=== PATIENT | male | born 1965 | race Caucasian/White ===

== ENCOUNTER 2017-06-17 15:05 | Emergency (ER) | payer BC ==
[2017-06-17] MEDS ORDERED: OXYCODONE/APAP 5/325 TAB PO ONE (16:59)
[2017-06-17] MEDS ORDERED: LIDOCAINE 4%/MENTHOL 1% PATCH TD ONE (17:01)
--- NOTE | 2017-06-17 17:02 | EDPHY ---
H & P Time Seen by Provider: 06/17/17 16:36 HPI/ROS: CHIEF COMPLAINT: Back pain HISTORY OF PRESENT ILLNESS: 52-year-old male presents with 3 week history of low back pain. Onset of low back pain after he was caring a heavy object with his right arm 3 weeks ago. He felt a tweak in his back at that time and since then he has had gradually increasing left-sided back pain, which now radiates down the left leg. The pain is severe and increases with weight bearing and ambulation. He has taken Indocin, ibuprofen, Valium and Soma without relief. No weakness, numbness or bowel/bladder problems. REVIEW OF SYSTEMS: Constitutional: No fever, no chills Eyes: No visual changes ENT: No sore throat Respiratory: No cough, no shortness of breath Cardiac: No chest pain Gastrointestinal: No nausea, no vomiting, no abdominal pain Genitourinary: No hematuria, no dysuria Musculoskeletal: No leg pain or swelling Skin: No rash Neurological: No headache, no numbness, no weakness Psychiatric: No depression Past Medical/Surgical History: DJD cervical spine Social History: Neurosurgeon: Dr. Johnson , no recent alcohol Smoking Status: Never smoked Physical Exam: General Appearance: Alert, pleasant Eyes: Pupils equal and round, no conjunctival pallor or injection ENT, Mouth: Mucous membranes moist Neck: Normal inspection Respiratory: Lungs are clear to auscultation Cardiovascular: Regular rate and rhythm Gastrointestinal: Abdomen is soft and nontender Back: Normal inspection, no tenderness Neurological: A&O, motor 5/5 including dorsiflexion of the foot and 1st toe, sensory intact, antalgic gait Skin: Warm and dry, no rash Extremities: Negative straight leg raise Psychiatric: Mood and affect normal Constitutional: Initial Vital Signs Temperature (C) 36.5 C 06/17/17 15:36 Heart Rate 72 06/17/17 15:36 Respiratory Rate 17 06/17/17 15:36 Blood Pressure 130/84 H 06/17/17 15:36 O2 Sat (%) 97 06/17/17 15:36 O2 Delivery Mode Room Air Allergies/Adverse Reactions: No Known Allergies Allergy (Verified 06/17/17 15:35) Home Medications: Medication Instructions Recorded Allopurinol mg PO 11/21/12 Bupropion HCl 100 mg PO 11/21/12 oxyCODONE/APAP 5/325 [Percocet 1 tab PO Q4-6PRN PRN #12 tab 11/21/12 5/325 (*)] Citalopram 06/17/17 DIAZEPAM 06/17/17 Diazepam [Valium 5 MG (*)] 5 mg PO Q6 PRN #15 tab 06/17/17 SOMA 06/17/17 methylPREDNISolone [Medrol Dose 1 each PO AD #1 ea 06/17/17 Edwin] oxyCODONE/APAP 5/325 [Percocet 1 - 2 tab PO Q4 PRN #20 tab 06/17/17 5/325 (*)] Medical Decision Making ED Course/Re-evaluation: This patient presents with severe left-sided sciatica, without neurologic signs or symptoms. Neuro imaging is not indicated in this patient. He will be placed on Medrol Dosepak, Percocet and Valium. He will use lidocaine patches as needed. He will follow up with Dr. Gurmeet Johnson in the office. He already has an appointment scheduled in 2 weeks. Precautions given. Differential Diagnosis: Differential diagnosis for back pain includes muscular pain, herniated disc, epidural abscess, discitis, spine fracture, intra-abdominal causes and urinary tract infection. - Data Points Medications Given: Discontinued Medications Miscellaneous Medication (Icy Hot Lidocaine/Menthol 4%/1% Patch) 1 patch TD EDNOW ONE Stop: 06/17/17 17:02 Last Admin: 06/17/17 17:13 Dose: 1 patch Oxycodone/Acetaminophen (Percocet 5/325) 2 tab PO EDNOW ONE Stop: 06/17/17 17:00 Last Admin: 06/17/17 17:13 Dose: 2 tab Departure - Departure Disposition: Home, Routine, Self-Care Clinical Impression: Sciatica of left side Condition: Good Instructions: Sciatica (ED) Additional Instructions: Return for worsening symptoms or any concerns. Referrals: Juan Hurt MD [Primary Care Provider] - As per Instructions Giorgi Johnson MD [Medical Doctor] - As per Instructions (Keep your appointment with Dr. Johnson. ) Prescriptions: Diazepam [Valium 5 MG (*)] 5 mg PO Q6 PRN #15 tab PRN Reason: muscle spasm methylPREDNISolone [Medrol Dose Edwin] 1 each PO AD #1 ea oxyCODONE/APAP 5/325 [Percocet 5/325 (*)] 1 - 2 tab PO Q4 PRN #20 tab PRN Reason: pain
[2017-06-17 17:18] VITALS: BP 152/88; PULSE 77; RESP 16; TEMP 96.8; O2SAT 96
[2017-06-17] MEDS ORDERED: PATCH REMOVAL 1 EA PATCH TD SCH (21:00)
== END 2017-06-17 17:32 | disposition home or self-care (01) ==
DX: M54.32 Sciatica, left side (principal)

== ENCOUNTER → 2017-06-22 | Outpatient (CLI) | payer BC | LOC: FIMAGING 11:32 | PROVIDERS: ATTEND Physician Assistant | DX: M45.5 Ankylosing spondylitis of thoracolumbar region (principal) ==

== ENCOUNTER 2017-06-23 17:04 | Emergency (ER) | payer BC ==
--- NOTE | 2017-06-23 18:05 | EDPHY ---
H & P Stated Complaint: L SPINE DEGENERATIVE CHANGES WITH INCREASING WEAKNESS/SENT FOR MRI Time Seen by Provider: 06/23/17 18:04 HPI/ROS: HPI: This is a 52-year-old male who presents with Chief Complaint: L SPINE DEGENERATIVE CHANGES WITH INCREASING WEAKNESS/SENT FOR MRI Location: Lower lumbar, left leg Quality: Pain Duration: Several weeks Signs and Symptoms: No bleeding, + radiation, no numbness, no weakness, no tingling, no incontinence, + decreased range of motion, no swelling, + pain, no fever, left leg weakness Timing: Worsening Severity: Moderate to severe Context: Patient presents from recommendation from Dr. Johnson office for MRI of the lumbar spine. Last night he had left leg weakness primarily in the left anterior and posterior thigh that caused him to lose his balance, fall and worsen his lower back pain. Patient reports that several weeks ago he was lifting approximately 45 lb and placed it on his right shoulder when he felt pain on his left lower back that worsened next morning and was associated with decreased range of motion. He was seen in this emergency room on 06/17/2017 and given Medrol Dosepak, Valium and Percocet with transient relief in symptoms. Patient reports that he felt better and again lifted a heavy object and re-injured his lower back. Modifying Factors: See above Comment: ROS: see HPI Constitutional: No fever, no chills, no weight loss Eyes: No blurred vision Respiratory: No shortness of breath, no cough Cardiovascular: No chest pain Gastrointestinal: No nausea, no vomiting no diarrhea Genitourinary: No dysuria Extremities: No myalgias Neurologic: No weakness, no numbness Skin: No rashes Hematologic: No bruising, no bleeding MEDICAL/SURGICAL/SOCIAL HISTORY: Medical history: Degenerative spine changes Surgical history: Denies Social history: Employed. CONSTITUTIONAL: Extremely pleasant, well-developed well-nourished adult male, awake and alert, no obvious distress HEENT: Atraumatic and normocephalic. NECK: supple, no midline tenderness, flexion 45 degrees, extension 45 degrees, right and left lateral flexion 45 degrees. No meningismus. Cardiovascular: Normal S1/S2, regular rate, regular rhythm, without murmur rub or gallop. PULMONARY/CHEST: Symmetrical and nontender. no crepitus. Clear to auscultation bilaterally. Good air movement. No accessory muscle usage. ABDOMEN: Soft, nondistended, nontender, no ecchymosis. PELVIC: no pain with rocking; bilateral hips flexion 125 degrees, extension 30 degrees, with no pain internal rotation and no pain external rotation. BACK: No midline tenderness, no paraspinous spasm, deep tendon reflexes 2/2, + moderate pain pain with left straight leg raise, no pain with right leg straight leg raise, No foot drop. Flexion, extension, bilateral lateral rotation mildly decreased range of motion secondary to pain. Achilles reflexes are equal bilaterally. Able to walk on heels and toes without difficulty. EXTREMITIES: 2/2 pulses, strength 5/5, DIP/PIP/MCP flexion/extension intact with good light touch sensation. no deformities, no clubbing, no cyanosis or edema. NEUROLOGICAL: no focal neuro deficits. GCS 15. Light touch sensation intact. SKIN: Warm and dry, no erythema. no rash. Good capillary refill. Source: Patient Exam Limitations: No limitations - Personal History Current Tetanus/Diphtheria Vaccine: Yes Tetanus Vaccine Date: WITHIN 10 YRS - Medical/Surgical History Hx Asthma: No Hx Chronic Respiratory Disease: No Hx Diabetes: No Hx Cardiac Disease: No Hx Renal Disease: No Hx Cirrhosis: No Hx Alcoholism: No Hx HIV/AIDS: No Hx Splenectomy or Spleen Trauma: No Other PMH: degenerative back issues/gout - Social History Smoking Status: Never smoked Constitutional: Initial Vital Signs Temperature (C) 36.5 C 06/23/17 17:13 Heart Rate 74 06/23/17 17:13 Respiratory Rate 18 06/23/17 17:13 Blood Pressure 157/97 H 06/23/17 17:13 O2 Sat (%) 97 06/23/17 17:13 O2 Delivery Mode Room Air Allergies/Adverse Reactions: No Known Allergies Allergy (Verified 06/23/17 17:12) Home Medications: Medication Instructions Recorded Allopurinol mg PO 11/21/12 Bupropion HCl 100 mg PO 11/21/12 oxyCODONE/APAP 5/325 [Percocet 1 tab PO Q4-6PRN PRN #12 tab 11/21/12 5/325 (*)] Citalopram 06/17/17 DIAZEPAM 06/17/17 Diazepam [Valium 5 MG (*)] 5 mg PO Q6 PRN #15 tab 06/17/17 SOMA 04/04/18 methylPREDNISolone [Medrol Dose 1 each PO AD #1 ea 06/17/17 Edwin] oxyCODONE/APAP 5/325 [Percocet 1 - 2 tab PO Q4 PRN #20 tab 06/17/17 5/325 (*)] HYDROmorphone HCL [Dilaudid 2 mg 2 mg PO Q6 PRN #12 tab 06/23/17 (*)] Indomethacin 06/23/17 Medical Decision Making - Diagnostics Imaging Results: Imaging Impressions Lumbar Spine MRI 06/23/17 18:19 Impression: 1. L3-L4: Focal left foraminal disk protrusion causing severe left neural foraminal stenosis, with mild right neural foraminal stenosis. 2. L2-L3: Mild to moderate right and mild left neural foraminal stenosis, with no significant spinal canal narrowing. 3. Please see above findings at specific disk levels. Findings discussed with Aneta Kenny PA-C, on June 23, 2017 at 1934. ED Course/Re-evaluation: MRI lumbar spine ordered due to progressive worsening of pain and left upper leg weakness. Patient politely declined any pain medications while waiting in the emergency room. No signs of neurovascular compromise/tenting of skin/compartment syndrome/ extremities and joints examined above and below area of concern and are neurovascularly intact/epidural hematoma/myositis/diskitis. Called by radiologist who advised that there is L3-L4 disc protrusion with nerve root impingement on the left. Reassessed patient who reports that he wants to go home with Neurosurgery follow -up. 1956: ED decision to consult Neurosurgery as sent to ER for further imaging. Spoke with Dr. Vega who advises appropriate to discharge home with pain control and outpatient follow-up. Given patient option to be admitted to the hospital for pain control and he kindly request to be discharged home. Ambulatory without deficits at discharge. Pain controlled at discharge. This patient was seen under the supervision of my secondary supervising physician. I evaluated care for this patient independently. Differential Diagnosis: Back pain including but not limited to muscular pain, herniated disc, spine fracture, intra-abdominal causes and urinary tract infection. Departure - Departure Disposition: Home, Routine, Self-Care Clinical Impression: Protrusion of lumbar intervertebral disc, Neural foraminal stenosis of lumbar spine Condition: Good Instructions: Lumbar Disc Herniation (ED), Lumbar Spinal Stenosis (ED) Additional Instructions: Rest as much as possible until you are feeling better. Do not lift More than 10 lb and avoid any moderate or strenuous activity. Use Valium as needed for muscle spasm. Use Dilaudid 2 mg every 6 hr as needed for severe pain. Call Dr. Vega's office in the morning for follow-up appointment this week to discuss further intervention options. Return to the ER immediately if you have new or worsening back pain, fevers/ chills, flu like symptoms, incontinence or inability to urinate or defecate, weakness, paralysis, or any other symptom that concerns you Referrals: Derrick Vega MD [Medical Doctor] - As per Instructions Juan Hurt MD [Primary Care Provider] - As per Instructions Prescriptions: HYDROmorphone HCL [Dilaudid 2 mg (*)] 2 mg PO Q6 PRN #12 tab PRN Reason: Pain, Severe
[2017-06-23 20:26] VITALS: BP 146/83
== END 2017-06-23 20:26 | disposition home or self-care (01) ==
DX: M48.061 Spinal stenosis, lumbar region without neurogenic claudication (principal); M51.26 Other intervertebral disc displacement, lumbar region

== ENCOUNTER 2017-07-13 05:56 | Day surgery (SDC) | payer BC ==
[2017-07-13] MEDS ORDERED: ceFAZolin 2 GM/SWFI 2 GM/20 ML SYR IVP ONE (06:13)
[2017-07-13] MEDS ORDERED: ACETAMINOPHEN 500 MG TAB PO ONE (06:13)
[2017-07-13] MEDS ORDERED: LR 1,000 ML IV ONE (06:17)
--- NOTE | 2017-07-13 06:42 | PDHPUP ---
History & Physical Update H&P update statement: This history and physical update is based on an assessment of the patient which was completed after admission or registration (within 24 hours), but prior to the surgery/procedure. H&P update: H&P reviewed & patient examined, no change in patient's condition since H&P completed
--- NOTE | 2017-07-13 06:56 | PDANEPAE ---
ANE History of Present Illness 52 year old male with PMHx of FRANK, anxiety and depression presents for microdiscectomy. ANE Past Medical History - Cardiovascular History Hx Hypertension: No Hx Arrhythmias: No Hx Chest Pain: No Hx Coronary Artery / Peripheral Vascular Disease: No Hx CHF / Valvular Disease: No Hx Palpitations: No - Pulmonary History Hx COPD: No Hx Asthma/Reactive Airway Disease: No Hx Recent Upper Respiratory Infection: No Hx Oxygen in Use at Home: No Hx Sleep Apnea: No Sleep Apnea Screening Result - Last Documented: Negative Pulmonary History Comment: mild FRANK - Neurologic History Hx Cerebrovascular Accident: No Hx Seizures: No Hx Dementia: No - Endocrine History Hx Diabetes: No Hypothyroid: No Hyperthyroid: No Obesity: no - Renal History Hx Renal Disorders: No - Liver History Hx Hepatic Disorders: No - Neurological & Psychiatric Hx Hx Neurological and Psychiatric Disorders: Yes Neurological / Psychiatric History Comment: slight tremor left hand. 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 - GI History Hx Gastrointestinal Disorders: No - Other Health History Other Health History: none - Chronic Pain History Chronic Pain: No - Surgical History Prior Surgeries: perineal cyste removed ANE Review of Systems Review of systems is: negative Review of Systems: - Exercise capacity Exercise capacity: >=4 METS METS (RN): 6 METS - Systems Muscolosketal: Reports: back pain Neurological: Reports: tremors ANE Patient History - Allergies Allergies/Adverse Reactions: No Known Allergies Allergy (Verified 07/09/17 12:08) - Home Medications Home medications: home medication list seen and reviewed Home Medications: Allopurinol 11/21/12 [Last Taken Unknown] Bupropion HCl 11/21/12 [Last Taken Unknown] Citalopram 06/17/17 [Last Taken Unknown] - NPO status NPO Status: no food or drink >8 hours NPO Since - Liquids (Date): 07/13/17 NPO Since - Liquids (Time): 06:00 NPO Since - Solids (Date): 07/12/17 NPO Since - Solids (Time): 20:00 - Anes Hx Anes Hx: no prior problems - Smoking Hx Smoking Status: Never smoked Marijuana use: No - Alcohol Use Alcohol Use: Rarely - Family Anes Hx Family Anes Hx: neg - N/A Family Hx Anesthesia Complications: none ANE Labs/Vital Signs - Vital Signs Vital Signs: reviewed preoperatively; see RN documention for details Blood Pressure: 129/78 Heart Rate: 66 Respiratory Rate: 14 O2 Sat (%): 95 Height: 172.72 cm Weight: 83.007 kg ANE Physical Exam - Airway Neck exam: FROM Mallampati Score: Class 2 Mouth exam: normal dental/mouth exam Mouth image: 1 - Small chip on inferior cutting surface - Pulmonary Pulmonary: no respiratory distress - Cardiovascular Cardiovascular: regular rate and rhythym - ASA Status ASA Status: II ANE Anesthesia Plan Anesthesia Plan: general endotracheal anesthesia Total IV Anesthesia: No
[2017-07-13] MEDS ORDERED: BUPIVACAINE 0.25% 30 ML SDV ONE (07:02)
[2017-07-13] MEDS ORDERED: THROMBIN (BOVINE) 5,000 UNIT VIAL TP ONE (07:02)
[2017-07-13] MEDS ORDERED: DEPO METHYLPREDNISOLONE 40 MG/ML SDV ONE (07:02)
[2017-07-13] MEDS ORDERED: BACITRACIN 50,000 UNITS/10 ML SYR IRR ONE (07:03)
[2017-07-13] MEDS ORDERED: MIDAZOLAM 2 MG/2 ML VIAL IVP ONE (07:08)
[2017-07-13] MEDS ORDERED: PROPOFOL/EMULSION 500 MG/50 ML BOTTLE IV ONE (07:15)
[2017-07-13] MEDS ORDERED: fentaNYL 100 MCG/2 ML INJ ONE (07:15)
[2017-07-13] MEDS ORDERED: REMIFENTANIL HCL 1 MG VIAL ONE (07:15)
[2017-07-13] MEDS ORDERED: PROPOFOL 200 MG/20 ML VIAL ONE (07:15)
[2017-07-13] MEDS ORDERED: ROCURONIUM 50 MG/5 ML VIAL ONE (07:17)
[2017-07-13] MEDS ORDERED: LIDOCAINE 2% 5 ML SDV ONE (07:17)
[2017-07-13] MEDS ORDERED: DEXAMETHASONE 4 MG/ML VIAL ONE (07:19)
[2017-07-13] MEDS ORDERED: ONDANSETRON 4 MG/2 ML VIAL ONE (07:19)
[2017-07-13] MEDS ORDERED: ONDANSETRON 4 MG/2 ML VIAL IVP PRN (08:32)
[2017-07-13] MEDS ORDERED: LR 500 ML IV PRN (08:32)
[2017-07-13] MEDS ORDERED: oxyCODONE IR 5 MG TAB PO PRN (08:32)
[2017-07-13] MEDS ORDERED: DIAZEPAM 5 MG/ML 1 ML SYR IVP PRN (08:32)
[2017-07-13] MEDS ORDERED: NALOXONE HCL 0.4 MG/ML INJ IVP PRN (08:32)
[2017-07-13] MEDS ORDERED: HYDROmorphONE/DILAUDID 2 MG/ML INJ IVP PRN (08:32)
[2017-07-13] MEDS ORDERED: PHENYLEPHRINE HCL 100 MCG/ML SYR IVP PRN (08:32)
[2017-07-13] MEDS ORDERED: ACETAMINOPHEN 500 MG TAB PO PRN (08:32)
[2017-07-13] MEDS ORDERED: epHEDrine SULFATE 10 MG/ML SYR IVP PRN (08:32)
[2017-07-13] MEDS ORDERED: fentaNYL 100 MCG/2 ML INJ IVP PRN (08:32)
[2017-07-13] MEDS ORDERED: PHENYLEPHRINE HCL 100 MCG/ML SYR ONE (08:57)
--- NOTE | 2017-07-13 10:18 | POSTOPPROG ---
Post Op Note Date of Operation: 07/13/17 Surgeon: Giorgi Johnson Child Care Group Leader: Kary Gabriel SUPER[employer] Anesthesia: GET(General Endotracheal) Pre-op Diagnosis: L3-4 HNP Procedure: Left L3-4 ELVIA Inf/Abcess present in the surg proc area at time of surgery?: No Depth: Deep Incisional (Fascial) EBL: 50-100 Date of Surgery: 07/13/17 Post Op Day: 0 Assessment/Plan: Assessment: 52 yr old male s/p left L3-4 ELVIA Plan: -DC home when criteria met Please call neurosurgery with any questions/concerns Subjective: Waking up in PACU Objective: Waking up in PACU PERRL No facial droop 5/5 BUE, BLE Sensation intact to light touch BLE Dressing CDI Appropriate Neuro Check Frequency Ordered: Yes
[2017-07-13] MEDS ORDERED: oxyCODONE IR 5 MG TAB ONE (10:21)
[2017-07-13] MEDS ORDERED: METHOCARBAMOL 750 MG TAB ONE (10:47)
[2017-07-13 10:50] VITALS: BP 128/82
[2017-07-13] MEDS ORDERED: HYDROCODONE/APAP 5/325 TAB PO ONE (11:00)
[2017-07-13] MEDS ORDERED: METHOCARBAMOL 750 MG TAB PO ONE (11:00)
--- NOTE | 2017-07-13 12:51 | GOP ---
[f rep st] OPERATIVE REPORT DATE OF OPERATION: 07/13/2017 SURGEON: Oh Johnson MD PUPIL PERSONNEL WORKER: Kary Gabriel, nurse practitioner. PREOPERATIVE DIAGNOSIS: Herniated nucleus pulposus, left L3-4, with a rostral disk extension and a f oraminal disk fragment at L3-4. POSTOPERATIVE DIAGNOSIS: Herniated nucleus pulposus, left L3-4, with a rostral disk extension and a foraminal disk fragment at L3-4. PROCEDURE PERFORMED: Left L3-4 hemilaminotomy with a microdiskectomy ([id number], microscope). FINDINGS: ESTIMATED BLOOD LOSS: 25 cc. INDICATIONS: The patient is a 52-year-old gentleman with terrible left leg pain. Pain radiating to the left groin and left medial thigh, down the thigh to the medial knee. He was getting a little bit of lateral thigh pain down to the lateral knee and occasionally down the leg below that, but the pre dominant pain wrapped around the left anterior thigh down to the medial knee very much in an L3 type pattern with some components of an L4 pattern as well, and he desired to have surgery. The risk of r ecurrent disk herniation was discussed. He knew there was risk of nerve injury, spinal fluid leak, a nd the possible need for more extensive surgery, although I thought this was quite unlikely. I discu ssed sometimes the difficulty of removing the disk from the neural foramina itself, but that usually we are successful even though we do not directly visualize the foramen through the lateral laminotomy approach. He was getting a little bit of symptoms on the right-hand side, but I also informed him t hat we would not be addressing these in general and that we are going to focus on the left leg pain t hat was driving him to have surgery. He wanted to proceed despite the risks. He knew that more exte nsive surgery, including fusion surgery, is occasionally necessary to solve the problem, but I did no t think it was necessary currently. DESCRIPTION OF PROCEDURE: The patient was taken to the operating room, placed in a supine position. General anesthesia was begun. He was flipped prone onto the Heriberto frame. Care was taken to pad al l points of contact. His back was sterilely prepped and draped by the surgeon. A localizing x-ray w as taken. We made a 2 cm incision above the L3-4 interspace. The subcutaneous tissue was dissected using Bovie cautery down through the fascia, and a subperiosteal dissection was made down the left L3 -4 lamina. A localizing x-ray was taken. We drilled a left L3 hemilaminotomy. We preserved the par s interarticularis of L3 and the facet joint of L3-4. We then introduced the operating microscope, o pened ligamentum flavum, and decompressed the lateral thecal sac. We worked our way from the L4 pedi ely all the way up to the L3 pedicle, and we swept the thecal sac medially, and there was a large sanna e fragment of disk located rostral to the L3-4 disk, emanating all the way up to the L3 pedicle, and we were able to sweep this down. This did take considerable time, and we got a large number of free disk fragments out from this location. I was less than satisfied from the foraminal fragment itself since I spent considerable additional time really working in the foramen with a ball-tip probe, and t hen we finally delivered a 2nd very large, very far lateral free fragment from the neural foramen lat e in the case, and now I was very happy. The exiting L3 nerve root appeared to be in good shape. I could not feel any additional compression there, and the lateral aspect of the spinal canal of L3-4 l ooked great. We did not do a radical microdiskectomy at L3-4. There was some subannular fragments t hat were delivered, but most of the L3-4 disk we left intact. We irrigated with antibiotic saline so lution, placed some Depo-Medrol over the lateral thecal sac and over the nerve, and then closed the i ncision in multiple layers using Vicryl sutures. Steri-Strips were applied. The patient was reverse d from anesthesia, extubated, and transferred to recovery room in stable condition. There were no co mplications. COMPLICATIONS: None. /[id number]/MODL
--- NOTE | 2017-07-13 15:37 | POSTANESTH ---
Post Anesthetic Evaluation Cardiovascular Status: Normal, Stable, Similar to Pre-Op Cond Respiratory Status: Normal, Stable, Similar to Pre-op Cond. Level of Consciousness/Mental Status: Can Participate in Eval, Alert and Oriented Pain Control: Adequate, Prn Tx Ordered Nausea/Vomiting Control: Adequate, Prn Tx Ordered Complications Possibly Related to Anesthesia: None Noted
== END 2017-07-13 11:30 | disposition home or self-care (01) ==
LOC: FSGY 05:56
PROVIDERS: ATTEND Neurological Surgery
PROC: 00NY0ZZ Release Lumbar Spinal Cord, Open Approach (ICD-10-PCS; principal; 2017-07-13 07:30)
DX: M51.16 Intervertebral disc disorders with radiculopathy, lumbar region (principal)
CPT/HCPCS: J0171; J0690; J1030; J1100; J2250; J2370; J2405; J2704; J3010